=== PATIENT | female | born 1955 | race Caucasian/White ===

== ENCOUNTER 2016-08-14 19:12 | Inpatient (IN) | payer MEDICARE, OTHER ==
--- NOTE | ~2016-08-14 | IDS ---
Interim Discharge Summary [facility] [address] [place]. [address] NAME: ORALIA POSADA : 59 STATUS : ADM IN [facility]#: [id number] AGE: 61 ADM/REG DATE : 08/15/16 MR#: [id number] REPORT SERV DATE: 08/21/16 DICTATED BY: RSOE DIALLO DATE: 08/21/16 REPORT STATUS : Draft TRANSCRIBED BY: MODL DATE: 08/21/16 ADMISSION DATE: 08/15/2016 DISCHARGE DATE: INTERIM DISCHARGE DIAGNOSES: 1. Septic shock. 2. Relative adrenal insufficiency. 3. Severe pulmonary hypertension. 4. Constipation. 5. Acute kidney injury. 6. CREST. 7. Asthma. HOSPITAL COURSE: A 61-year-old white female admitted on 08/15/2016 by one of my partners for concern of sepsis. The patient had hypotension and required the use of Levophed and was put on antibiotics including vancomycin and Levaquin. The patient has a complicated history that includes severe pulmonary artery hypertension and sees Dr. lFy Bolden at [place] and sees Dr. Guicho Jorge here in [place] from pulmonary standpoint. She is on a continuous outpatient infusion of Veletri for pulmonary hypertension along with Opsumit, and she also has a permanent long-term infusion catheter in the right anterior part of her chest. There was concern that this may be a source of infection. However, her blood cultures, both the peripheral site and the supplemental line were negative. Her initial white blood cell count on admission was 15,200, and her procalcitonin level went to as high as 6.03. With antibiotics, her white blood cell count came down to normal, and her procalcitonin did decrease. She clinically was feeling better but was still requiring a decent amount of Levophed and was not decreasing. We added Solu-Cortef a couple of days ago, and that seemed to be the triggering factor to help get her off the Levophed. This will have to be weaned over subsequent days. She did have an issue of some nausea, vomiting, and one ? episode of aspiration of vomit a few days ago. Gallbladder ultrasound showed a kidney stone without any evidence of cholecystitis. KUB showed some dilated loops of bowel with a lot of stool. We put on a bowel regimen which seem to symptomatically help her. She is currently off the Levophed and is okay to go to the floor to finish out her hospital course. CEP/MODL Rose Diallo, / [id number] CC: Geri Melton SAMIYA
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
--- NOTE | ~2016-08-14 | DS ---
Discharge Summary [facility] [address] [place]. [address] NAME: ORALIA POSADA : 59 STATUS : DIS IN PAT#: [id number] AGE: 61 ADM/REG DATE : 08/15/16 MR#: [id number] REPORT SERV DATE: 08/26/16 DICTATED BY: Todd ZAZUETA DATE: 08/26/16 REPORT STATUS : Draft TRANSCRIBED BY: MODL DATE: 08/26/16 ADMISSION DATE: 08/15/2016 DISCHARGE DATE: 08/26/2016 For details of earlier hospital stay, please see interim summary dictated 08/21/2016 by Matt Diallo from Critical Care. DIAGNOSES AT TIME OF DISCHARGE: Decompensated right heart failure in the setting of severe pulmonary hypertension, on maximum medical therapy; anasarca; CREST syndrome; chronic kidney disease; suspected pneumonia; urinary tract infection, present on admission. ACTIVE CONSULTATIONS: Pulmonology. PROCEDURES: None. BRIEF SUMMARY: Since transitioning out of the ICU, the patient has continued to have problems with volume overload and hypotension requiring transfer back to intermediate care and the reinstitution of Levophed infusion to maintain adequate blood pressure. 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 They initially did not have a clinically appropriate bed available, but arrangements were made in the evening of 08/25/2016 when the bed did become available for the patient to transition from [facility] to [facility] for ongoing medical management. DISCHARGE MEDICATIONS: Celexa 20 mg daily, Colace 100 b.i.d., Lovenox 40 daily, folic acid one daily, Lasix 40 b.i.d., Solu-Cortef 100 IV q.12, Synthroid 50 mcg daily, Opsumit 10 mg at bedtime, Protonix 40 daily, Zosyn 3.375 IV q.8 hours, MiraLAX one packet daily, potassium chloride 20 mEq daily, Veletri one infusion daily. Of note, the patient's home [facility] was on hold due to hypotension. Further recommendations pending ongoing evaluation at [facility]. Of note, greater than 30 minutes was required to review data, review medical record, to discuss transfer issues with outside providers and transfer center and to reconcile discharge/transfer medications. [facility]/ROSA Todd Zazueta M.D. / [id number] CC: Discharge Summary [address] [address] NAME: ORALIA POSADA : 59 STATUS : DIS IN PAT#: [id number] AGE: 61 ADM/REG DATE : 08/15/16 MR#: [id number] REPORT SERV DATE: 08/26/16 DICTATED BY: Todd ZAZUETA DATE: 08/26/16 REPORT STATUS : Draft TRANSCRIBED BY: ROSA DATE: 08/26/16 Geri Avila Samiya
[~2016-08-14 19:12] MED LIST: ALEVE220 MG PO; AMB5 PO; ASA5GR PO; BUM1 PO; Bioidentical Hormone PO; C5 PO; CELEXA10 PO; CELEXA20 PO; CENTRUM TAB1 TAB PO; CITRACAL PO; CITRUCEL500 MG PO; COUMADIN4 MG PO; CRESTOR PO; CYMBALTA30 PO; DIL4TAB PO; DSS PO; HORMONES; JANTOVEN2 MG; JANTOVEN2 MG PO; JANTOVEN5 MG PO; KLOR-CON M2020 MEQ PO; L20 PO; L40 PO; LYRICA25 PO; MAGOX4 PO; METHOC500B PO; NAP500 PO; NEXIUM20 M1 PO; ORAZINC110 MG PO; OXYCOD PO; PERCOCET1 TA2 PO; PERCOCET1 TA4 PO; PERCOCET1 TA5 PO; PR12.5 PO; PRILO PO; PRILOSEC OTC20 MG PO; PRILOSEC10 MG PO; PRINZIDE1 TAB PO; REST75 PO; REVATIO20 PO; SIMVASTATIN PO; SINGULAIR1 PO; STERAPRED DS10 MG; SYMBICORT 160/41 INH INH; SYMBICORT 160/41 INH PO; SYN.025B PO; SYN.05 PO; TYLENOL ARTH650 MG PO; ULTRAM50 PO; VITAMIN D1000 UNI1 PO; VITC500 PO; VIVELLE-DOT0.1 MG TOP; XOPENEX HFA INH; ZAROX2.5B PO; ZESTORETIC PO; ZESTRIL10 MG PO; ZESTRIL20 MG PO; ZOCOR40 PO; [UNRECOGNIZED DRUG - OTHER]
[2016-08-14 21:22] LABS: INFLUENZA A SCREEN NEGATIVE (NEGATIVE); INFLUENZA B SCREEN NEGATIVE (NEGATIVE)
[2016-08-14 21:33] LABS: BASOPHILS 0.1 %; BASOPHILS ABSOLUTE 0.02 10/3/uL (0.0-0.16); EOSINOPHILS 0.1 %; EOSINOPHILS ABSOLUTE 0.01 10/3/uL (0.0-0.53); HEMATOCRIT 28.9 % (36.0-48.0); HEMOGLOBIN 9.8 g/dL (12.0-16.0); IMMATURE GRANULOCYTES 1.3 %; IMMATURE GRANULOCYTES ABSOLUTE 0.23 10/3/uL (0.0-0.11); LYMPHOCYTES 1.1 %; LYMPHOCYTES ABSOLUTE 0.19 10/3/uL (0.67-4.30); MEAN CORPUS HGB CONC 33.9 g/dL (32.0-36.0); MEAN CORPUSCULAR HEMOGLOB 32.7 pg (26.0-34.0); MEAN PLATELET VOLUME 11.5 fL (9.2-13.0); MONOCYTES 0.3 %; MONOCYTES ABSOLUTE 0.06 10/3/uL (0.21-1.20); NEUTROPHILS 97.1 %; PLATELET COUNT 161 10/3/uL (150-400); RBC DISTRIBUTION WIDTH 16.2 % (12.0-16.0)
[2016-08-14 21:40] LABS: ER CBC TAT 0 Hrs 16 Mins; MEAN CORPUSCULAR VOLUME 96.3 fL (80-100)
[2016-08-14 21:41] LABS: MANUAL DIFF NO %
[2016-08-14 22:04] LABS: INTERNATIONAL NORMAL RATI 1.3 UNITS (-); PROTIME (NOT ORD) 15.9 SEC (12.0-14.5)
[2016-08-14] MEDS ORDERED: ACET500CAP PO (22:12)
[2016-08-14 22:13] LABS: CALCIUM, SERUM 7.9 MG/DL (8.5-10.4); GLUCOSE, SERUM 85 MG/DL (60-99); POTASSIUM, SERUM 4.1 MMOL/L (3.5-5.3); SGOT(AST) 14 U/L (5-40); SGPT(ALT) 9 U/L (5-65); SODIUM, SERUM 131 MMOL/L (135-148); TOTAL BILIRUBIN 0.6 MG/DL (0-1.2); TROPONIN I 0.05 NG/ML (<0.05)
[2016-08-14 22:14] LABS: A/G RATIO 0.8 (0.7-1.9); ALBUMIN 2.7 G/DL (3.5-5.0); ALKALINE PHOSPHATASE 129 U/L (45-117); BUN (BLOOD UREA NITROGEN) 25 MG/DL (6-23); CHLORIDE, SERUM 101 MMOL/L (96-112); CO2 (CARBON DIOXIDE) 15 MMOL/L (24-34); CREATININE 1.58 MG/DL (0.55-1.02); GFR AFRICAN AMERICAN 41 ML/MIN (>=60); GFR NON AFRICAN AMERICAN 35 ML/MIN (>=60); GLOBULIN 3.3 G/DL (2.5-4.1)
[2016-08-14] MEDS ORDERED: EPOPROSTENOL (22:14)
[2016-08-14] MEDS ORDERED: ZOFRAN8 PO (22:15)
[2016-08-14] MEDS ORDERED: OPSUMIT10 PO (22:15)
[2016-08-14] MEDS ORDERED: VOLTAREN1 % TOP (22:15)
[2016-08-14] MEDS ORDERED: DESITIN TOP (22:15)
[2016-08-14] MEDS ORDERED: METHOC500B PO (22:16)
[2016-08-14] MEDS ORDERED: PRILO PO (22:18)
[2016-08-14] MEDS ORDERED: PROAIR HFA INH (22:18)
[2016-08-14] MEDS ORDERED: PROMETHAZI6.25 MG/5 PO (22:19)
[2016-08-14] MEDS ORDERED: PR25 PO (22:19)
[2016-08-14] MEDS ORDERED: ZOCOR40 PO (22:20)
[2016-08-14] MEDS ORDERED: ULTRAM50 PO (22:20)
[2016-08-14] MEDS ORDERED: REVATIO20 PO (22:20)
[2016-08-14] MEDS ORDERED: SONATA10 MG PO (22:20)
[2016-08-14] MEDS ORDERED: ADVAIR INH (22:21)
[2016-08-14] MEDS ORDERED: SPIRO50 PO (22:21)
[2016-08-14] MEDS ORDERED: CELEXA20 PO (22:22)
[2016-08-14] MEDS ORDERED: ATV.5 PO (22:22)
[2016-08-14] MEDS ORDERED: L80 PO (22:27)
[2016-08-14] MEDS ORDERED: KLOR-CON M2020 MEQ PO (22:27)
[2016-08-14] MEDS ORDERED: SYN.05 PO (22:27)
[2016-08-14] MEDS ORDERED: CLORTIMAZOLE TOP (22:27)
[2016-08-14] MEDS ORDERED: FLONASE NAS (22:27)
[2016-08-14] MEDS ORDERED: DUONEB INH (22:28)
[2016-08-14] MEDS ORDERED: IMOD PO (22:28)
[2016-08-14 23:19] LABS: BE (BASE EXCESS) -12.1 MEQ/L (0 +/- 2.5); BIPAP 15/5 cm.H2O; CARBOXYHEMOGLOBIN 0.9 % (0-3); HCO3 (ACTUAL BICARBONATE) 12.4 MEQ/L (23-27); INSTRUMENT SERIAL # 8087; METHEMOGLOBIN 0.2 % (0-3); O2 CONTENT 15.2 VOL% (18-24); OPERATOR ID 17589; PCO2 (CO2 TENSION) 25 MMHG (35-45); PO2 (O2 TENSION) 114 MMHG (79-93); SAMPLE Arterial; pH 7.32 (7.37-7.43)
[2016-08-15 02:35] LABS: ASCORBIC ACID (UR NOT ORDER) NEG (NEG); BILIRUBIN, URINE NEGATIVE (NEG); ER URINALYSIS TAT 0 Hrs 00 Mins; KETONE, URINE NEGATIVE (NEG); LEUKOCYTE ESTERASE(NOT OR TRACE (NEG); NITRITE (URINE) NEG (NEG); WBC (NOT ORDERED) (RFLEX) 8 (0-5)
[2016-08-15 04:33] LABS: PROCALCITONIN 9.41 ng/mL (<0.5)
[2016-08-16 15:03] LABS: HEMATOCRIT 29.6 % (36.0-48.0); MEAN CORPUS HGB CONC 33.8 g/dL (32.0-36.0); MEAN CORPUSCULAR HEMOGLOB 32.6 pg (26.0-34.0); MEAN CORPUSCULAR VOLUME 96.4 fL (80-100); MEAN PLATELET VOLUME 10.9 fL (9.2-13.0); PLATELET COUNT 148 10/3/uL (150-400); RBC DISTRIBUTION WIDTH 16.2 % (12.0-16.0); RED CELL COUNT 3.07 10/6/uL (4.0-5.6); WHITE BLOOD CELLS 15.2 10/3/uL (4.5-10.5)
[2016-08-16 15:04] LABS: MANUAL DIFF YES %
[2016-08-16 15:10] LABS: CALCIUM, SERUM 7.8 MG/DL (8.5-10.4); CHLORIDE, SERUM 98 MMOL/L (96-112); SODIUM, SERUM 129 MMOL/L (135-148)
[2016-08-16 15:11] LABS: BUN (BLOOD UREA NITROGEN) 16 MG/DL (6-23); CO2 (CARBON DIOXIDE) 19 MMOL/L (24-34); CREATININE 1.03 MG/DL (0.55-1.02); GFR AFRICAN AMERICAN 69 ML/MIN (>=60); GFR NON AFRICAN AMERICAN 59 ML/MIN (>=60); GLUCOSE, SERUM 126 MG/DL (60-99)
[2016-08-16 15:20] LABS: ANISOCYTOSIS 1+ (5-10/OIF) (0-5/OIF); BAND NEUTROPHILS 3 %; LYMPHOCYTES 2 %; MONOCYTES 1 %; MONOCYTES ABSOLUTE (CALC) 0.15 10/3/uL (0.21-1.20); NEUTROPHILS ABSOLUTE (CALC) 14.74 10/3/uL (2.02-8.40); PLATELET ESTIMATE ADQ (ADEQUATE); SEGMENTED NEUTROPHIL (0) 94 %; TOTAL NUCLEATED CELLS 100
[2016-08-16 15:21] LABS: POIKILOCYTOSIS 1+ (5-10/OIF) (0-5/OIF); TEARDROP SHAPED RBCS FEW (3-10/OIF)
[2016-08-17 04:47] LABS: BASOPHILS 0.4 %; BASOPHILS ABSOLUTE 0.05 10/3/uL (0.0-0.16); EOSINOPHILS 0.3 %; EOSINOPHILS ABSOLUTE 0.04 10/3/uL (0.0-0.53); HEMATOCRIT 27.5 % (36.0-48.0); HEMOGLOBIN 9.4 g/dL (12.0-16.0); IMMATURE GRANULOCYTES 1.1 %; IMMATURE GRANULOCYTES ABSOLUTE 0.14 10/3/uL (0.0-0.11); LYMPHOCYTES 7.2 %; MEAN CORPUS HGB CONC 34.2 g/dL (32.0-36.0); MEAN CORPUSCULAR HEMOGLOB 32.6 pg (26.0-34.0); MEAN CORPUSCULAR VOLUME 95.5 fL (80-100); MEAN PLATELET VOLUME 11.5 fL (9.2-13.0); MONOCYTES 5.8 %; MONOCYTES ABSOLUTE 0.73 10/3/uL (0.21-1.20); NEUTROPHILS 85.2 %; NEUTROPHILS ABSOLUTE 10.68 10/3/uL (2.02-8.40); PLATELET COUNT 124 10/3/uL (150-400); RBC DISTRIBUTION WIDTH 15.9 % (12.0-16.0); RED CELL COUNT 2.88 10/6/uL (4.0-5.6); WHITE BLOOD CELLS 12.5 10/3/uL (4.5-10.5)
[2016-08-17 04:49] LABS: MANUAL DIFF NO %
[2016-08-17 04:50] LABS: BUN (BLOOD UREA NITROGEN) 17 MG/DL (6-23); CALCIUM, SERUM 7.7 MG/DL (8.5-10.4); CHLORIDE, SERUM 95 MMOL/L (96-112); CO2 (CARBON DIOXIDE) 20 MMOL/L (24-34); CREATININE 0.94 MG/DL (0.55-1.02); GFR AFRICAN AMERICAN 77 ML/MIN (>=60); GFR NON AFRICAN AMERICAN 66 ML/MIN (>=60); SODIUM, SERUM 129 MMOL/L (135-148)
[2016-08-17 04:57] LABS: GLUCOSE, SERUM 72 MG/DL (60-99); POTASSIUM, SERUM 4.9 MMOL/L (3.5-5.3)
[2016-08-18 05:07] LABS: BASOPHILS 0.2 %; BASOPHILS ABSOLUTE 0.02 10/3/uL (0.0-0.16); EOSINOPHILS 0.3 %; EOSINOPHILS ABSOLUTE 0.03 10/3/uL (0.0-0.53); HEMATOCRIT 28.8 % (36.0-48.0); HEMOGLOBIN 9.8 g/dL (12.0-16.0); IMMATURE GRANULOCYTES 1.9 %; IMMATURE GRANULOCYTES ABSOLUTE 0.19 10/3/uL (0.0-0.11); LYMPHOCYTES 7.5 %; LYMPHOCYTES ABSOLUTE 0.73 10/3/uL (0.67-4.30); MEAN CORPUSCULAR HEMOGLOB 32.6 pg (26.0-34.0); MEAN CORPUSCULAR VOLUME 95.7 fL (80-100); MEAN PLATELET VOLUME 10.5 fL (9.2-13.0); MONOCYTES 4.3 %; MONOCYTES ABSOLUTE 0.42 10/3/uL (0.21-1.20); NEUTROPHILS 85.8 %; NEUTROPHILS ABSOLUTE 8.36 10/3/uL (2.02-8.40); PLATELET COUNT 156 10/3/uL (150-400); RBC DISTRIBUTION WIDTH 15.7 % (12.0-16.0); RED CELL COUNT 3.01 10/6/uL (4.0-5.6); WHITE BLOOD CELLS 9.8 10/3/uL (4.5-10.5)
[2016-08-18 05:13] LABS: MANUAL DIFF NO %
[2016-08-18 05:15] LABS: BUN (BLOOD UREA NITROGEN) 16 MG/DL (6-23); CALCIUM, SERUM 7.7 MG/DL (8.5-10.4); CHLORIDE, SERUM 96 MMOL/L (96-112); CO2 (CARBON DIOXIDE) 22 MMOL/L (24-34); CREATININE 0.98 MG/DL (0.55-1.02); GFR AFRICAN AMERICAN 73 ML/MIN (>=60); GFR NON AFRICAN AMERICAN 63 ML/MIN (>=60); PHOSPHORUS, SERUM 2.4 MG/DL (2.5-4.5); POTASSIUM, SERUM 4.2 MMOL/L (3.5-5.3); SODIUM, SERUM 128 MMOL/L (135-148)
[2016-08-18 05:16] LABS: GLUCOSE, SERUM 92 MG/DL (60-99)
[2016-08-18 06:43] LABS: PROCALCITONIN 2.03 ng/mL (<0.5)
[2016-08-19 07:34] LABS: BASOPHILS 0.4 %; BASOPHILS ABSOLUTE 0.03 10/3/uL (0.0-0.16); EOSINOPHILS 0.4 %; EOSINOPHILS ABSOLUTE 0.03 10/3/uL (0.0-0.53); HEMATOCRIT 30.7 % (36.0-48.0); HEMOGLOBIN 10.4 g/dL (12.0-16.0); IMMATURE GRANULOCYTES 2.9 %; IMMATURE GRANULOCYTES ABSOLUTE 0.24 10/3/uL (0.0-0.11); LYMPHOCYTES 6.9 %; LYMPHOCYTES ABSOLUTE 0.57 10/3/uL (0.67-4.30); MEAN CORPUS HGB CONC 33.9 g/dL (32.0-36.0); MEAN CORPUSCULAR HEMOGLOB 32.6 pg (26.0-34.0); MEAN CORPUSCULAR VOLUME 96.2 fL (80-100); MEAN PLATELET VOLUME 10.6 fL (9.2-13.0); MONOCYTES 5.8 %; MONOCYTES ABSOLUTE 0.48 10/3/uL (0.21-1.20); NEUTROPHILS 83.6 %; NEUTROPHILS ABSOLUTE 6.95 10/3/uL (2.02-8.40); PLATELET COUNT 175 10/3/uL (150-400); RBC DISTRIBUTION WIDTH 15.8 % (12.0-16.0); RED CELL COUNT 3.19 10/6/uL (4.0-5.6); WHITE BLOOD CELLS 8.3 10/3/uL (4.5-10.5)
[2016-08-19 07:41] LABS: MANUAL DIFF NO %
[2016-08-19 07:47] LABS: BUN (BLOOD UREA NITROGEN) 10 MG/DL (6-23); CALCIUM, SERUM 7.9 MG/DL (8.5-10.4); CHLORIDE, SERUM 96 MMOL/L (96-112); CO2 (CARBON DIOXIDE) 21 MMOL/L (24-34); CREATININE 0.87 MG/DL (0.55-1.02); GFR AFRICAN AMERICAN 85 ML/MIN (>=60); GFR NON AFRICAN AMERICAN 73 ML/MIN (>=60); GLUCOSE, SERUM 91 MG/DL (60-99); PHOSPHORUS, SERUM 2.8 MG/DL (2.5-4.5); POTASSIUM, SERUM 3.9 MMOL/L (3.5-5.3); SODIUM, SERUM 130 MMOL/L (135-148)
[2016-08-19 10:05] LABS: ALBUMIN 2.6 G/DL (3.5-5.0); ALKALINE PHOSPHATASE 146 U/L (45-117); DIRECT BILIRUBIN 0.2 MG/DL (0.0-0.4); INDIRECT BILIRUBIN(NOT ORDER) 0.3 MG/DL (0.1-0.9); SGOT(AST) 15 U/L (5-40); SGPT(ALT) 12 U/L (5-65); TOTAL BILIRUBIN 0.5 MG/DL (0-1.2); TOTAL PROTEIN 6.1 G/DL (6.0-8.5)
[2016-08-19 14:41] LABS: BE (BASE EXCESS) -5.1 MEQ/L (0 +/- 2.5); HCO3 (ACTUAL BICARBONATE) 19.5 MEQ/L (23-27); INSTRUMENT SERIAL # 35151; PCO2 (CO2 TENSION) 35 MMHG (35-45); PO2 (O2 TENSION) 57 MMHG (79-93); pH 7.37 (7.37-7.43)
[2016-08-19 14:42] LABS: ALLENS TEST Pos; CARBOXYHEMOGLOBIN 0.2 % (0-3); DEVICE NC; HEMOBLOGIN CONTENT 11.9 G/DL (12-16); METHEMOGLOBIN 0.4 % (0-3); O2 CONTENT 14.6 VOL% (18-24); SAMPLE Arterial
[2016-08-21 04:12] LABS: BASOPHILS 0.2 %; BASOPHILS ABSOLUTE 0.01 10/3/uL (0.0-0.16); EOSINOPHILS 0 %; HEMOGLOBIN 8.5 g/dL (12.0-16.0); LYMPHOCYTES 8.5 %; LYMPHOCYTES ABSOLUTE 0.51 10/3/uL (0.67-4.30); MEAN CORPUSCULAR HEMOGLOB 30.9 pg (26.0-34.0); MEAN PLATELET VOLUME 14.5 fL (9.2-13.0); MONOCYTES 5.8 %; MONOCYTES ABSOLUTE 0.35 10/3/uL (0.21-1.20); NEUTROPHILS 80.5 %; NEUTROPHILS ABSOLUTE 4.82 10/3/uL (2.02-8.40); PLATELET COUNT 145 10/3/uL (150-400); RBC DISTRIBUTION WIDTH 17.1 % (12.0-16.0); RED CELL COUNT 2.75 10/6/uL (4.0-5.6)
[2016-08-21 04:14] LABS: HEMATOCRIT 39.4 % (36.0-48.0); MANUAL DIFF NO %; MEAN CORPUS HGB CONC 21.6 g/dL (32.0-36.0); MEAN CORPUSCULAR VOLUME 143.3 fL (80-100)
[2016-08-21 04:26] LABS: BUN (BLOOD UREA NITROGEN) 12 MG/DL (6-23); CALCIUM, SERUM 8.6 MG/DL (8.5-10.4); CHLORIDE, SERUM 97 MMOL/L (96-112); CO2 (CARBON DIOXIDE) 22 MMOL/L (24-34); CREATININE 1.19 MG/DL (0.55-1.02); GFR AFRICAN AMERICAN 58 ML/MIN (>=60); GFR NON AFRICAN AMERICAN 50 ML/MIN (>=60); GLUCOSE, SERUM 108 MG/DL (60-99); POTASSIUM, SERUM 4.2 MMOL/L (3.5-5.3); SODIUM, SERUM 130 MMOL/L (135-148)
[2016-08-21 05:08] LABS: BAND NEUTROPHILS 3 %; LYMPHOCYTES 7 %; LYMPHOCYTES ABSOLUTE (CALC) 0.42 10/3/uL (0.67-4.30); MONOCYTES 6 %; MONOCYTES ABSOLUTE (CALC) 0.36 10/3/uL (0.21-1.20); NEUTROPHILS ABSOLUTE (CALC) 5.22 10/3/uL (2.02-8.40); SEGMENTED NEUTROPHIL (0) 84 %; TOTAL NUCLEATED CELLS 100
[2016-08-21 05:09] LABS: ANISOCYTOSIS 1+ (5-10/OIF) (0-5/OIF); HYPOCHROMIA 3+ (>30/OIF) (0-2/OIF); MACROCYTES 4+ (>50/OIF) (0-5/OIF); MICROCYTES 1+ (5-10/OIF) (0-5/OIF); PLATELET ESTIMATE SLT DEC (ADEQUATE)
[2016-08-22 07:35] LABS: CALCIUM, SERUM 9.1 MG/DL (8.5-10.4); CHLORIDE, SERUM 95 MMOL/L (96-112); CO2 (CARBON DIOXIDE) 22 MMOL/L (24-34); CREATININE 1.41 MG/DL (0.55-1.02); GFR AFRICAN AMERICAN 47 ML/MIN (>=60); GFR NON AFRICAN AMERICAN 41 ML/MIN (>=60); GLUCOSE, SERUM 109 MG/DL (60-99); SODIUM, SERUM 129 MMOL/L (135-148)
[2016-08-22 07:36] LABS: BUN (BLOOD UREA NITROGEN) 20 MG/DL (6-23)
[2016-08-22 07:49] LABS: HEMOGLOBIN 9.1 g/dL (12.0-16.0); MEAN CORPUSCULAR HEMOGLOB 31.4 pg (26.0-34.0); MEAN PLATELET VOLUME 11.2 fL (9.2-13.0); PLATELET COUNT 161 10/3/uL (150-400); RBC DISTRIBUTION WIDTH 15.8 % (12.0-16.0)
[2016-08-22 07:50] LABS: HEMATOCRIT 27.4 % (36.0-48.0); MANUAL DIFF YES %; MEAN CORPUS HGB CONC 33.2 g/dL (32.0-36.0); MEAN CORPUSCULAR VOLUME 94.5 fL (80-100); WHITE BLOOD CELLS 8.9 10/3/uL (4.5-10.5)
[2016-08-22 08:15] LABS: BAND NEUTROPHILS 4 %; IMMATURE GRANS ABSOLUTE (CALC) 0.36 10/3/uL (0.0-0.11); LYMPHOCYTES 7 %; LYMPHOCYTES ABSOLUTE (CALC) 0.62 10/3/uL (0.67-4.30); METAMYELOCYTES 2 %; MONOCYTES 2 %; MONOCYTES ABSOLUTE (CALC) 0.18 10/3/uL (0.21-1.20); MYELOCYTES 2 %; NEUTROPHILS ABSOLUTE (CALC) 7.74 10/3/uL (2.02-8.40); PLATELET ESTIMATE ADQ (ADEQUATE); SEGMENTED NEUTROPHIL (0) 83 %; TOTAL NUCLEATED CELLS 100
[2016-08-22 08:16] LABS: ELLIPTOCYTES 1+ (3-10/OIF) (0-2/OIF); HELMET CELLS FEW (3-10/OIF); POIKILOCYTOSIS 1+ (5-10/OIF) (0-5/OIF)
[2016-08-23 08:08] LABS: HEMATOCRIT 27.4 % (36.0-48.0); MEAN CORPUS HGB CONC 32.8 g/dL (32.0-36.0); MEAN PLATELET VOLUME 10.7 fL (9.2-13.0); PLATELET COUNT 146 10/3/uL (150-400); RBC DISTRIBUTION WIDTH 15.5 % (12.0-16.0); RED CELL COUNT 2.81 10/6/uL (4.0-5.6); WHITE BLOOD CELLS 12.3 10/3/uL (4.5-10.5)
[2016-08-23 08:09] LABS: MANUAL DIFF YES %; MEAN CORPUSCULAR VOLUME 97.5 fL (80-100)
[2016-08-23 08:19] LABS: ALBUMIN 2.8 G/DL (3.5-5.0); BUN (BLOOD UREA NITROGEN) 22 MG/DL (6-23); CALCIUM, SERUM 9.3 MG/DL (8.5-10.4); CHLORIDE, SERUM 95 MMOL/L (96-112); CO2 (CARBON DIOXIDE) 22 MMOL/L (24-34); CREATININE 1.39 MG/DL (0.55-1.02); GFR AFRICAN AMERICAN 48 ML/MIN (>=60); GFR NON AFRICAN AMERICAN 41 ML/MIN (>=60); PHOSPHORUS, SERUM 3.3 MG/DL (2.5-4.5); POTASSIUM, SERUM 4.9 MMOL/L (3.5-5.3); SODIUM, SERUM 128 MMOL/L (135-148)
[2016-08-23 08:20] LABS: GLUCOSE, SERUM 85 MG/DL (60-99)
[2016-08-23 08:34] LABS: BAND NEUTROPHILS 3 %; HELMET CELLS OCC (0-2/OIF); IMMATURE GRANS ABSOLUTE (CALC) 0.49 10/3/uL (0.0-0.11); LYMPHOCYTES 8 %; LYMPHOCYTES ABSOLUTE (CALC) 0.98 10/3/uL (0.67-4.30); METAMYELOCYTES 2 %; MONOCYTES 3 %; MONOCYTES ABSOLUTE (CALC) 0.37 10/3/uL (0.21-1.20); MYELOCYTES 2 %; NEUTROPHILS ABSOLUTE (CALC) 10.46 10/3/uL (2.02-8.40); PLATELET ESTIMATE SLT DEC (ADEQUATE); POIKILOCYTOSIS 1+ (5-10/OIF) (0-5/OIF); SCHISTOCYTES OCC (0-2/OIF); SEGMENTED NEUTROPHIL (0) 82 %; TOTAL NUCLEATED CELLS 100
[2016-08-23 19:39] LABS: ASCORBIC ACID (UR NOT ORDER) NEG (NEG); BILIRUBIN, URINE NEGATIVE (NEG); KETONE, URINE NEGATIVE (NEG); LEUKOCYTE ESTERASE(NOT OR LARGE (NEG); WBC (NOT ORDERED) (RFLEX) 47 (0-5)
[2016-08-24 05:42] LABS: ALBUMIN 2.6 G/DL (3.5-5.0); BUN (BLOOD UREA NITROGEN) 23 MG/DL (6-23); CALCIUM, SERUM 9.4 MG/DL (8.5-10.4); CHLORIDE, SERUM 95 MMOL/L (96-112); CO2 (CARBON DIOXIDE) 21 MMOL/L (24-34); CREATININE 1.44 MG/DL (0.55-1.02); GFR AFRICAN AMERICAN 46 ML/MIN (>=60); GFR NON AFRICAN AMERICAN 40 ML/MIN (>=60); GLUCOSE, SERUM 96 MG/DL (60-99); PHOSPHORUS, SERUM 3.6 MG/DL (2.5-4.5); POTASSIUM, SERUM 4.6 MMOL/L (3.5-5.3); SODIUM, SERUM 128 MMOL/L (135-148)
[2016-08-24 05:48] LABS: HEMATOCRIT 27.1 % (36.0-48.0); HEMOGLOBIN 8.9 g/dL (12.0-16.0); MEAN CORPUS HGB CONC 32.8 g/dL (32.0-36.0); MEAN CORPUSCULAR HEMOGLOB 31.3 pg (26.0-34.0); MEAN CORPUSCULAR VOLUME 95.4 fL (80-100); MEAN PLATELET VOLUME 11.3 fL (9.2-13.0); PLATELET COUNT 146 10/3/uL (150-400); RBC DISTRIBUTION WIDTH 15.7 % (12.0-16.0); RED CELL COUNT 2.84 10/6/uL (4.0-5.6); WHITE BLOOD CELLS 11.6 10/3/uL (4.5-10.5)
[2016-08-24 05:49] LABS: ALLENS TEST Pos; BE (BASE EXCESS) -2.4 MEQ/L (0 +/- 2.5); CARBOXYHEMOGLOBIN 0.1 % (0-3); HEMOBLOGIN CONTENT 9.7 G/DL (12-16); INSTRUMENT SERIAL # 8083; METHEMOGLOBIN 0.2 % (0-3); O2 CONTENT 13.8 VOL% (18-24); OPERATOR ID 19993; PCO2 (CO2 TENSION) 31 MMHG (35-45); PO2 (O2 TENSION) 152 MMHG (79-93); SAMPLE Arterial; pH 7.45 (7.37-7.43)
[2016-08-24 05:51] LABS: MANUAL DIFF YES %
[2016-08-24 06:42] LABS: BAND NEUTROPHILS 4 %; IMMATURE GRANS ABSOLUTE (CALC) 0.58 10/3/uL (0.0-0.11); LYMPHOCYTES 11 %; LYMPHOCYTES ABSOLUTE (CALC) 1.28 10/3/uL (0.67-4.30); METAMYELOCYTES 3 %; MONOCYTES 1 %; MONOCYTES ABSOLUTE (CALC) 0.12 10/3/uL (0.21-1.20); MYELOCYTES 2 %; NEUTROPHILS ABSOLUTE (CALC) 9.63 10/3/uL (2.02-8.40); PLATELET ESTIMATE SLT DEC (ADEQUATE); POLYCHROMASIA 1+ (2-5/OIF) (0-1/OIF); SEGMENTED NEUTROPHIL (0) 79 %; TOTAL NUCLEATED CELLS 100
[2016-08-24 21:46] LABS: HEMOGLOBIN 8.8 g/dL (12.0-16.0)
[2016-08-25 05:37] LABS: HEMOGLOBIN 9.5 g/dL (12.0-16.0); MEAN CORPUS HGB CONC 32.8 g/dL (32.0-36.0); MEAN CORPUSCULAR HEMOGLOB 31.3 pg (26.0-34.0); MEAN CORPUSCULAR VOLUME 95.4 fL (80-100); MEAN PLATELET VOLUME 11.3 fL (9.2-13.0); PLATELET COUNT 160 10/3/uL (150-400); RBC DISTRIBUTION WIDTH 15.8 % (12.0-16.0); RED CELL COUNT 3.04 10/6/uL (4.0-5.6)
[2016-08-25 05:40] LABS: MANUAL DIFF YES %; WHITE BLOOD CELLS 18.4 10/3/uL (4.5-10.5)
[2016-08-25 05:57] LABS: BUN (BLOOD UREA NITROGEN) 24 MG/DL (6-23); CALCIUM, SERUM 9.5 MG/DL (8.5-10.4); CHLORIDE, SERUM 95 MMOL/L (96-112); CO2 (CARBON DIOXIDE) 21 MMOL/L (24-34); CREATININE 1.37 MG/DL (0.55-1.02); GFR AFRICAN AMERICAN 49 ML/MIN (>=60); GFR NON AFRICAN AMERICAN 42 ML/MIN (>=60); SGOT(AST) 11 U/L (5-40); SGPT(ALT) 12 U/L (5-65); SODIUM, SERUM 129 MMOL/L (135-148); TOTAL PROTEIN 6.3 G/DL (6.0-8.5)
[2016-08-25 06:11] LABS: A/G RATIO 1.3 (0.7-1.9); ALBUMIN 3.5 G/DL (3.5-5.0); ALKALINE PHOSPHATASE 92 U/L (45-117); GLOBULIN 2.8 G/DL (2.5-4.1); GLUCOSE, SERUM 119 MG/DL (60-99)
[2016-08-25 06:40] LABS: BAND NEUTROPHILS 1 %; IMMATURE GRANS ABSOLUTE (CALC) 0.37 10/3/uL (0.0-0.11); LYMPHOCYTES 2 %; LYMPHOCYTES ABSOLUTE (CALC) 0.37 10/3/uL (0.67-4.30); METAMYELOCYTES 2 %; MONOCYTES 1 %; MONOCYTES ABSOLUTE (CALC) 0.18 10/3/uL (0.21-1.20); NEUTROPHILS ABSOLUTE (CALC) 17.48 10/3/uL (2.02-8.40); PLATELET ESTIMATE ADQ (ADEQUATE); POLYCHROMASIA 1+ (2-5/OIF) (0-1/OIF); SEGMENTED NEUTROPHIL (0) 94 %; TOTAL NUCLEATED CELLS 100; TOXIC GRANULATION 1+
[2016-08-25 07:45] LABS: PROCALCITONIN 0.19 ng/mL (<0.5)
== END 2016-08-26 00:45 | disposition short-term general hospital (02) | DRG 871 ==
LOC: ER 19:12 → MIC 08-15 01:01 → 4SO 08-23 13:59 → IMCU 08-24 12:48
PROVIDERS: Emergency Medicine; Hospitalist; Internal Medicine; Internal Medicine Critical Care Medicine; Internal Medicine Pulmonary Disease
DX: A41.9 Sepsis, unspecified organism (principal); R65.21 Severe sepsis with septic shock; N17.9 Acute kidney failure, unspecified; I27.2 Other secondary pulmonary hypertension; M34.1 CR(E)ST syndrome; J18.9 Pneumonia, unspecified organism; E27.40 Unspecified adrenocortical insufficiency; N39.0 Urinary tract infection, site not specified; M35.00 Sjogren syndrome, unspecified; I10 Essential (primary) hypertension; M79.7 Fibromyalgia; I73.00 Raynaud's syndrome without gangrene; K21.9 Gastro-esophageal reflux disease without esophagitis; F41.9 Anxiety disorder, unspecified; F32.9 Major depressive disorder, single episode, unspecified; Z90.710 Acquired absence of both cervix and uterus; Z98.890 Other specified postprocedural states; J45.909 Unspecified asthma, uncomplicated
CPT/HCPCS: 36600; 71010; 74000; 74150; 76705; 80048; 80053; 80069; 80076; 80202; 81001; 82533; 82805; 83605; 83690; 83735; 83880; 84100; 84145; 84484; 85014; 85018; 85025; 85610; 87040; 87077; 87086; 87186; 87449; 87641; 87804; 93005; 93306; 94640; 94660; 96361; 96374; 96375; 99285; A9270-GY; J0690; J1120; J1720; J1956; J2405; J2543; J3370; P9047